=== PATIENT | female | born 1985 | race Caucasian/White ===

== ENCOUNTER 2020-09-28 08:46 | Inpatient (IN) | payer OTHER ==
[~2020-09-28] VITALS: Ht 170.2 cm; Wt 113.6 kg
[2020-09-28 09:32] VITALS: BP 131/80
[2020-09-28 10:06] LABS: CALC OSMOLALITY 273 mosm/kg (275-300); CALCIUM 8.7 mg/dL (8.5-10.1); CARBON DIOXIDE 23.7 mmol/L (21.0-32.0); CHLORIDE - SERUM 104 mmol/L (98-107); CREATININE - SERUM 0.7 mg/dL (0.6-1.3); GLUCOSE 118 mg/dL (74-106); POTASSIUM - SERUM 3.5 mmol/L (3.5-5.1); SODIUM 137 mmol/L (136-145); UREA NITROGEN 11 mg/dL (7-18); eGFR NON AFRICAN AMERICAN > 90 mL/min (90-120)
[2020-09-28 10:10] LABS: ALBUMIN 3.5 g/dL (3.4-5.0); ALKALINE PHOSPHATASE 86 U/L (30-120); ALT (SGPT) 50 U/L (10-68); LIPASE 90 U/L (73-393); PROTEIN - SERUM 8.1 g/dL (6.4-8.2)
[2020-09-28 10:16] LABS: BASOPHILS 0.3 % (0-2); EOSINOPHILS 0.2 % (0-7); HEMATOCRIT 38.6 % (36.0-48.0); HEMOGLOBIN 12.6 g/dL (12-16); LYMPHOCYTES 11.5 % (15-50); MCH 29.1 pg (26.0-34.0); MCHC 32.6 g/dL (31.0-37.0); MCV 89.4 fL (80.0-100.0); MEAN PLATELET VOLUME 7.8 fL (7.4-10.4); MONOCYTES 5.7 % (2-11); NEUTROPHILS 82.3 % (40-80); PLATELET COUNT 271 10x3/uL (130-400); RBC 4.31 10x6/uL (4.00-5.40); RDW 14.5 % (11.5-14.5); WBC 21.1 10x3/uL (4.8-10.8)
[2020-09-28 10:39] LABS: AMYLASE - SERUM 35 U/L (25-115); TROPONIN-I < 0.017 ng/mL (0.000-0.060)
[2020-09-28 10:39] LABS: HCG SERUM NEGATIVE (NEGATIVE)
[2020-09-28 10:51] LABS: BILIRUBIN NEGATIVE (NEGATIVE); KETONE TRACE mg/dL (< 1+); NITRITE NEGATIVE (NEGATIVE); PH 5.5 (5.0-8.0); UROBILINOGEN NORMAL mg/dL (< 2)
[2020-09-28 16:05] VITALS: BP 117/68; Ht 170.2 cm; Wt 113.6 kg
--- NOTE | 2020-09-28 19:30 | NUR ---
PT LYING IN BED RESTING WITHOUT DISTRESS, AOX4. IV RIGHT AC INFUSING NS @ 125. DENIES PAIN OR NEEDS AT THIS TIME. CL IN REACH
[2020-09-28 20:08] VITALS: BP 99/57
--- NOTE | 2020-09-28 22:00 | NUR ---
PT NAUSEOUS WITH PAIN 7/10 TO LUQ. GAVE MORHINE AND ZOFRAN. PT DENIES OTHER NEEDS AT THIS TIME. SIGNIFICANT OTHER AT BEDSIDE. CL IN REACH
[2020-09-29] VITALS: BP 126/80
[2020-09-29 04:43] VITALS: BP 136/83
[2020-09-29 06:26] LABS: BASOPHILS 0.2 % (0-2); EOSINOPHILS 0.4 % (0-7); HEMATOCRIT 35.1 % (36.0-48.0); HEMOGLOBIN 11.5 g/dL (12-16); LYMPHOCYTES 12.9 % (15-50); MCH 29.5 pg (26.0-34.0); MCHC 32.8 g/dL (31.0-37.0); MCV 89.9 fL (80.0-100.0); MEAN PLATELET VOLUME 7.8 fL (7.4-10.4); MONOCYTES 5.7 % (2-11); NEUTROPHILS 80.8 % (40-80); PLATELET COUNT 242 10x3/uL (130-400); RDW 14.5 % (11.5-14.5)
[2020-09-29 06:32] LABS: ALKALINE PHOSPHATASE 77 U/L (30-120); ALT (SGPT) 45 U/L (10-68); BILIRUBIN - TOTAL 0.45 mg/dL (0.2-1.3); CALC OSMOLALITY 277 mosm/kg (275-300); CALCIUM 8.2 mg/dL (8.5-10.1); CARBON DIOXIDE 22.4 mmol/L (21.0-32.0); CHLORIDE - SERUM 106 mmol/L (98-107); CREATININE - SERUM 0.6 mg/dL (0.6-1.3); GLUCOSE 115 mg/dL (74-106); POTASSIUM - SERUM 3.8 mmol/L (3.5-5.1); PROTEIN - SERUM 6.6 g/dL (6.4-8.2); SODIUM 140 mmol/L (136-145); UREA NITROGEN 7 mg/dL (7-18); eGFR NON AFRICAN AMERICAN > 90 mL/min (90-120)
[2020-09-29 06:33] LABS: WBC 15.1 10x3/uL (4.8-10.8)
[2020-09-29 08:40] VITALS: BP 113/75
--- NOTE | 2020-09-29 09:40 | NUR ---
PATIENT RECIEVED ZOFRAN FOR N/V. VOMITTED SMALL AMOUNT OF YELLOW LIQUID. IV INTACT. CALL LIGHT WITHIN REACH. WILL CONTINUE TO MONITOR.
--- NOTE | 2020-09-29 11:00 | NUR ---
PATIENT UP AMBULATING IN KUHN AT THIS TIME.
--- NOTE | 2020-09-29 12:45 | NUR ---
PATIENT IV RESTARTED IN LEFT HAND PER PATIENT REQUEST. IV IN RIGHT AC REMOVED WITH CATH TIP INTACT.
--- NOTE | 2020-09-29 14:00 | NUR ---
PATIENT RECIEVED ZOFRAN FOR N/V. VOMITTED SMALL AMOUNT OF YELLOW LIQUID AGAIN. STATED SHE IS NOT FEELING WELL. GAVE COOL WASH CLOTH AND PATIENT LAYING DOWN RESTING AT THIS TIME. IV INTACT. CALL LIOGHT WITHIN REACH.
[2020-09-29 16:17] VITALS: BP 83/44
--- NOTE | 2020-09-29 18:45 | NUR ---
PATIENT IN BED WITH EYES CLOSED RESTING QUIETLY. IV INTACT. CALL LIGHT WITHIN REACH.
[2020-09-29 19:56] VITALS: BP 110/69
--- NOTE | 2020-09-29 20:00 | NUR ---
PT NAUSEOUS AND REQUESTING ZOFRAN AND TYLENOL. STATES SHE THINKS THE MORPHINE MAKES HER MORE NAUSEOUS AND HER ABD HURTS WORSE WHEN SHE TAKES THE MORPHINE AND THEN STARTS GAGGING FROM NAUSEA. STATES SHE WOULD RATHER JUST TAKE THE TYLENOL FOR HER PAIN. LUQ ABD TENDER TO TOUCH. BOWEL SOUNDS ABSENT. PT STATES SHE HAS NOT PASSED GAS BUT ONCE TODAY. LAST BM WAS SATURDAY NIGHT AT 2300. SIGNIFICANT OTHER AT BEDSIDE AT THIS TIME. DENIES NEEDS. CL IN REACH
[2020-09-30] VITALS: BP 91/44
[2020-09-30 04:00] VITALS: BP 98/69
--- NOTE | 2020-09-30 05:00 | NUR ---
PT STATES SHE IS NAUSEOUS AT THIS TIME, GAGGING IS MAKING HER ABD HURT. GAVE ZOFRAN AND TYLENOL AT THIS TIME. PT GETTING UP TO TAKE SHOWER AT THIS TIME. DENIES OTHER NEEDS. CL IN REACH
[2020-09-30 09:17] LABS: BASOPHILS 0.2 % (0-2); HEMATOCRIT 33.3 % (36.0-48.0); HEMOGLOBIN 11.1 g/dL (12-16); MCH 29.7 pg (26.0-34.0); MCHC 33.2 g/dL (31.0-37.0); MCV 89.4 fL (80.0-100.0); MONOCYTES 5.9 % (2-11); NEUTROPHILS 68.9 % (40-80); PLATELET COUNT 238 10x3/uL (130-400); RBC 3.73 10x6/uL (4.00-5.40); RDW 14.3 % (11.5-14.5)
[2020-09-30 09:28] LABS: ALBUMIN 2.8 g/dL (3.4-5.0); ALKALINE PHOSPHATASE 68 U/L (30-120); ALT (SGPT) 48 U/L (10-68); BILIRUBIN - TOTAL 0.26 mg/dL (0.2-1.3); CALC OSMOLALITY 278 mosm/kg (275-300); CALCIUM 8.4 mg/dL (8.5-10.1); CHLORIDE - SERUM 107 mmol/L (98-107); CREATININE - SERUM 0.7 mg/dL (0.6-1.3); GLUCOSE 102 mg/dL (74-106); POTASSIUM - SERUM 3.5 mmol/L (3.5-5.1); SODIUM 141 mmol/L (136-145); UREA NITROGEN 8 mg/dL (7-18); WBC 9.6 10x3/uL (4.8-10.8); eGFR NON AFRICAN AMERICAN > 90 mL/min (90-120)
--- NOTE | 2020-09-30 09:28 | NUR ---
ALERT AND ORIENTED. ASSESSMENT COMPLETE. DENIES NEEDS. BED LOW. CALL GODDARD IN REACH. WILL CONTINUE TO MONITOR.
[2020-09-30 09:31] VITALS: BP 122/88
[2020-09-30 12:11] VITALS: BP 124/83
[2020-09-30 17:23] VITALS: BP 120/56
[2020-09-30 20:00] VITALS: BP 100/54
[2020-10-01 05:06] LABS: BASOPHILS 0.3 % (0-2); EOSINOPHILS 0.8 % (0-7); HEMATOCRIT 35.5 % (36.0-48.0); HEMOGLOBIN 11.7 g/dL (12-16); LYMPHOCYTES 20.5 % (15-50); MCH 29.8 pg (26.0-34.0); MCHC 32.9 g/dL (31.0-37.0); MCV 90.6 fL (80.0-100.0); MEAN PLATELET VOLUME 7.9 fL (7.4-10.4); MONOCYTES 6.9 % (2-11); NEUTROPHILS 71.5 % (40-80); PLATELET COUNT 256 10x3/uL (130-400); RBC 3.92 10x6/uL (4.00-5.40); RDW 14.6 % (11.5-14.5); WBC 8.6 10x3/uL (4.8-10.8)
[2020-10-01 05:15] LABS: ALBUMIN 2.7 g/dL (3.4-5.0); ALKALINE PHOSPHATASE 74 U/L (30-120); ALT (SGPT) 50 U/L (10-68); BILIRUBIN - TOTAL 0.15 mg/dL (0.2-1.3); CALC OSMOLALITY 277 mosm/kg (275-300); CALCIUM 8.3 mg/dL (8.5-10.1); CARBON DIOXIDE 25.9 mmol/L (21.0-32.0); CHLORIDE - SERUM 108 mmol/L (98-107); CREATININE - SERUM 0.7 mg/dL (0.6-1.3); GLUCOSE 122 mg/dL (74-106); POTASSIUM - SERUM 3.8 mmol/L (3.5-5.1); PROTEIN - SERUM 6.9 g/dL (6.4-8.2); SODIUM 140 mmol/L (136-145); UREA NITROGEN 7 mg/dL (7-18); eGFR NON AFRICAN AMERICAN > 90 mL/min (90-120)
--- NOTE | 2020-10-01 05:15 | NUR ---
I have reviewed this patient and I concur with the Shift Assessment completed by the Licensed Practical Nurse today this shift.
[2020-10-01 08:37] VITALS: BP 151/82
--- NOTE | 2020-10-01 10:11 | NUR ---
ASSESSMENT PER FLOW SHEET. TOLERATING FULL LIQUIDS. BM LAST NIGHT. WANTS REG DIET. WANTS TO DC HOME.
[2020-10-01] MEDS ORDERED: LEVAQUIN750 MG PO (10:52)
[2020-10-01] MEDS ORDERED: FLAGYL500 MG PO (10:53)
[2020-10-01] MEDS ORDERED: ZOFRAN4 MG PO (10:53)
--- NOTE | 2020-10-01 11:42 | NUR ---
IV DCD WITH CATH TIP INATACT. DISCHARGE INSTRUCTIONS,STATES UNDERSTANDING.LEFT UNIT VIA WHEELCHAIR FOR TRANSPORT HOME.
--- NOTE | 2020-10-01 15:08 | MORECARE ---
CASE MANAGEMENT DISCHARGE SUMMARY PATIENT: JAMES GREEN UNIT: [id number] ADM DATE: 09/28/20 AGE: 34 : 83 SEX: F ROOM/BED: D.2240 AUTHOR: MINDY,DOC PHYSICIAN: REFERRING PHYSICIAN: HERNANDEZ CLIFTON DO DATE OF SERVICE: 10/01/20 Case Management Discharge Planning Summary DCP REVIEW SUMMARY ANTICIPATED D/C DATE: 10/01/2020 EXPECTED LOS : 3 CASE STATUS: DCP Initiated INITIAL REVIEW: 09/28/2020 INITIAL REVIEWER: Kristian Gibbs FINAL DISCHARGE DISPOSITION: : FINAL REVIEWER: FINAL REVIEW DATE: DCP Focus Questions & Answers QUESTION: ANSWER : PATIENT: JAMES GREEN ENCOUNTER: [id number] MEDICAL RECORD#: [id number] ADMISSION DATE: 09/28/2020 DISCHARGE DATE: 10/01/2020 ATTENDING MD: HERNANDEZ RIBEIRO : AGE: 34 MARITAL STATUS: S DC PLAN ID: [id number] FACILITY: [facility] PRINTED ON: 10/01/20 15:08 CT All edits/amendments must be made on the electronic document DICTATION DATE: 10/01/20 1508 IMAGING SYSTEM ADMINISTRATOR: NICOLE 10/01/20 1508 RPT#: [id number] DC DATE:10/01/20 STATUS: DIS IN [facility] [address] [place] [address] END OF REPORT
--- NOTE | 2020-10-01 15:19 | MORECARE ---
CASE MANAGEMENT DISCHARGE SUMMARY PATIENT: JAMES GREEN UNIT: [id number] ADM DATE: 09/28/20 AGE: 34 : 83 SEX: F ROOM/BED: D.2240 AUTHOR: MINDY,FLAKITA PHYSICIAN: REFERRING PHYSICIAN: HERNANDEZ CLIFTON DO DATE OF SERVICE: 10/01/20 Case Management Discharge Planning Summary COMMENTS ENTERED DATE: 10/01/20 15:15 CT COMMENT TYPE: Discharge Planning REVIEWER: Kristian Gibbs CM met with patient to complete DC plan and to evaluate needs. Patient lives independently with her spouse, Lamine Mcclelland, . Patient stated that her home is safe and has electricity and running water. Patient stated that she has no problems paying for medications and she fills her medications at [facility] on [address]. Patient stated that her primary care physician is Dr. Luna. At discharge, the patient plans to return home and feels this is a safe discharge. CM discussed availability of home health, rehab services, and medical equipment. Patient declined HHS, SNF, IPR, and DME. Patient voiced no other needs at this time and is satisfied with DC plan. Transportation provider at discharge will be with Lamine. CM will continue to follow and will assist as needed with dc plans/needs. DCP REVIEW SUMMARY ANTICIPATED D/C DATE: 10/01/2020 EXPECTED LOS : 3 CASE STATUS: DCP Initiated INITIAL REVIEW: 09/28/2020 INITIAL REVIEWER: Kristian Gibbs FINAL DISCHARGE DISPOSITION: : FINAL REVIEWER: FINAL REVIEW DATE: DCP Focus Questions & Answers DCP Evaluation QUESTION: ANSWER Patient and/or caregiver agree upon recommended discharge plan? : Yes Patient's current cognitive status: : *Oriented to person, place, situation, time and present Patient's ability to cope with chronic illness : d. No chronic illness Patient gives permission to discuss discharge plans with: (name, relationship and number) : spouse, Lamine Mcclelland, Family / Caregiver's ability to cope with chronic illness: : a. Adequate (ability to meet patient's medical needs, ensures patient attends medical appts.) Does the patient have the ability to pay for or attain post discharge needs / services? : Yes Functional screen assessment: : Basic needs can adequately be met by self Family / Caregiver's ability to cope with chronic illness: : a. Adequate (ability to meet patient's medical needs, ensures patient attends medical appts.) Physical Status: : Independent with ADL's Equipment needed for post hospitalization: : None Is there a likelihood that the patient will require additional services to return to the preadmission environment? : No Living Arrangements: : Home with Spouse/Significant Other Patient with capacity for self-care or can be cared for in same environment as prior to hospitalization? : Yes Baseline cognitive status: : *Oriented to person, place, situation, time and present Physical environment modification needed / anticipated for discharge: : No Medication Management: : Patient states can read and understand medication labels Medication Management: : Patient states can afford medications Pharmacy name(s): : [facility] on [address] Does Patient have transportation to get home and to follow-up medical appointments when discharged from the hospital? : Yes Would patient like to participate in any Care Coordination programs (if applicable): : Not applicable Does the patient have electricity at home? : Yes Does the patient have running water in their house? : Yes Equipment in use: : None Mental health screen: : No mental health history DCP Re-evaluation QUESTION: ANSWER Would patient like to participate in any Care Coordination programs (if applicable): : Not applicable PATIENT: JAMES GREEN ENCOUNTER: [id number] MEDICAL RECORD#: [id number] ADMISSION DATE: 09/28/2020 DISCHARGE DATE: 10/01/2020 ATTENDING MD: HERNANDEZ RIBEIRO : AGE: 34 MARITAL STATUS: S DC PLAN ID: [id number] FACILITY: [facility] PRINTED ON: 10/01/20 15:19 CT All edits/amendments must be made on the electronic document DICTATION DATE: 10/01/20 1519 QUILL CLEANER: DM 10/01/20 1519 RPT#: [id number] DC DATE:10/01/20 STATUS: DIS IN [facility] [address] [place] [address] END OF REPORT
--- NOTE | 2020-10-02 17:38 | MORECARE ---
CASE MANAGEMENT DISCHARGE SUMMARY PATIENT: JAMES GREEN UNIT: [id number] ADM DATE: 09/28/20 AGE: 34 : 83 SEX: F ROOM/BED: D.2240 AUTHOR: FLAKITA GUILLEN PHYSICIAN: REFERRING PHYSICIAN: HERNANDEZ CLIFTON DO DATE OF SERVICE: 10/02/20 Case Management Discharge Planning Summary COMMENTS ENTERED DATE: 10/01/20 15:15 CT COMMENT TYPE: Discharge Planning REVIEWER: Kristian Gibbs CM met with patient to complete DC plan and to evaluate needs. Patient lives independently with her spouse, Lamine Mcclelland, . Patient stated that her home is safe and has electricity and running water. Patient stated that she has no problems paying for medications and she fills her medications at [facility] on [address]. Patient stated that her primary care physician is Dr. Luna. At discharge, the patient plans to return home and feels this is a safe discharge. CM discussed availability of home health, rehab services, and medical equipment. Patient declined HHS, SNF, IPR, and DME. Patient voiced no other needs at this time and is satisfied with DC plan. Transportation provider at discharge will be with Lamine. CM will continue to follow and will assist as needed with dc plans/needs. DCP REVIEW SUMMARY ANTICIPATED D/C DATE: 10/01/2020 EXPECTED LOS : 3 CASE STATUS: DCP Complete INITIAL REVIEW: 09/28/2020 INITIAL REVIEWER: Kristian Gibbs FINAL DISCHARGE DISPOSITION: : FINAL REVIEWER: FINAL REVIEW DATE: DCP Focus Questions & Answers DCP Evaluation QUESTION: ANSWER Patient gives permission to discuss discharge plans with: (name, relationship and number) : spouse, Lamine Mcclelland, Patient's ability to cope with chronic illness : d. No chronic illness Patient's current cognitive status: : *Oriented to person, place, situation, time and present Family / Caregiver's ability to cope with chronic illness: : a. Adequate (ability to meet patient's medical needs, ensures patient attends medical appts.) Patient and/or caregiver agree upon recommended discharge plan? : Yes Physical Status: : Independent with ADL's Family / Caregiver's ability to cope with chronic illness: : a. Adequate (ability to meet patient's medical needs, ensures patient attends medical appts.) Functional screen assessment: : Basic needs can adequately be met by self Does the patient have the ability to pay for or attain post discharge needs / services? : Yes Living Arrangements: : Home with Spouse/Significant Other Is there a likelihood that the patient will require additional services to return to the preadmission environment? : No Equipment needed for post hospitalization: : None Baseline cognitive status: : *Oriented to person, place, situation, time and present Patient with capacity for self-care or can be cared for in same environment as prior to hospitalization? : Yes Physical environment modification needed / anticipated for discharge: : No Medication Management: : Patient states can afford medications Medication Management: : Patient states can read and understand medication labels Pharmacy name(s): : [facility] on [address] Does Patient have transportation to get home and to follow-up medical appointments when discharged from the hospital? : Yes Would patient like to participate in any Care Coordination programs (if applicable): : Not applicable Does the patient have electricity at home? : Yes Does the patient have running water in their house? : Yes Equipment in use: : None Mental health screen: : No mental health history DCP Re-evaluation QUESTION: ANSWER Would patient like to participate in any Care Coordination programs (if applicable): : Not applicable PATIENT: JAMES GREEN ENCOUNTER: [id number] MEDICAL RECORD#: [id number] ADMISSION DATE: 09/28/2020 DISCHARGE DATE: 10/01/2020 ATTENDING MD: HERNANDEZ RIBEIRO : AGE: 34 MARITAL STATUS: S DC PLAN ID: [id number] FACILITY: [facility] PRINTED ON: 10/02/20 17:38 CT All edits/amendments must be made on the electronic document DICTATION DATE: 10/02/201737 BILLING AUDITOR: DM 10/02/201737 RPT#: [id number] DC DATE:10/01/20 STATUS: DIS IN [facility] [address] [place] [address] END OF REPORT
== END 2020-10-01 11:42 | disposition home or self-care (01) | DRG 392 ==
LOC: D.ER 08:46 → OBSVTIME 11:46 → D.MS 11:46
PROVIDERS: Emergency Medicine; Family Medicine; ADMIT Family Medicine; ATTEND Family Medicine
DX: K57.92 Diverticulitis of intestine, part unspecified, without perforation or abscess without bleeding (principal); E28.2 Polycystic ovarian syndrome; E66.9 Obesity, unspecified; Z68.39 Body mass index [BMI] 39.0-39.9, adult